=== PATIENT | male | born 2000 | race African-American/Black ===

== ENCOUNTER 2025-09-07 04:12 | Inpatient (IN) | payer MEDICAID, OTHER ==
[2025-09-07] VITALS (9 sets, daily range): BP systolic 103–119; BP diastolic 51–72; PULSE 53–96; RESP 15–20; TEMP 97.9–98.2; O2SAT 98–100
[~2025-09-07] VITALS: Ht 180.3 cm; Wt 67.8 kg
[2025-09-07] MEDS: SODIUM CHLORIDE 0.9% 1,000 ML IV ONE (05:15)
--- NOTE | 2025-09-07 05:23 | PRN ---
Misceleneous Note Note Note RAPID MEDICAL ASSESSMENT NOTE: 24-year-old male who presents with possible syncopal episode after smoking marijuana. Patient was heard falling down in the bathroom. He was noted to be confused for some time afterwards. Patient is not number what happened. He does have a headache, was feeling shaky and weak after the episode. He denies history of seizure but has had episodes of passing out in the past. Physical exam: General: Awake, alert and oriented. No acute distress. Skin: Skin in warm, dry and intact without rashes or lesions. HEENT: The head is normocephalic and atraumatic. Conjunctivae are clear without exudates or hemorrhage. Sclera is non-icteric. Neck: Normal range of motion. No JVD. Cardiac: Regular rate Respiratory: No signs of respiratory distress. No Stridor. Neurological: The patient is awake, alert and oriented to person, place, and time with normal speech. Speech is clear. There is no facial asymmetry. Psychiatric: Appropriate mood and affect. Good judgement and insight. Plan: Labs, CT head, IV fluid bolus. Sign out to oncoming provider pending full evaluation and re-assessment. MICHELLE LUDWIG MD Sep 07, 2025 05:23
[2025-09-07] MEDS: ONDANSETRON HCL 4 MG/2 ML VIAL IV ONE (06:00)
[2025-09-07] MEDS: ACETAMINOPHEN 325 MG TAB PO ONE (06:00)
--- NOTE | 2025-09-07 06:12 | DVH ---
EXAM: CT HEAD WITHOUT CONTRAST INDICATION: Syncope vs Seizure, Head INjury, BENSON. TECHNIQUE: CT of the head without intravenous contrast. Coronal and sagittal reformatted images are s ubmitted. Radiation Dose : 1. Head: CT Dose: CTDI volume is 59.05 mGy. Dose-length product is 828.39 mGy*cm The dose indicators for CT are the volume Computed Tomography (CT) Dose Index (CTDIvol) and the Dose Length Product (DLP), and are measured in units of mGy and mGy-cm, respectively. These indicators are not patient dose, but values generated from the CT scanner acquisition factors. The report includes radiation exposure data for exposures received during this examination. All CT scans at this medical facility are performed using dose modulation techniques as appropriate to a performed exam including the following: Automated exposure control was utilized; adjustment of the MA and/or KV according to patient size; and use of iterative reconstruction technique. COMPARISON: None FINDINGS: There is no evidence of acute intracranial hemorrhage, extra-axial collection, mass effect, midline s hift, herniation or hydrocephalus. The ventricles, sulci and cisterns are age appropriate. The granger-white differentiation is intact. The visualized paranasal sinuses and mastoid air cells are clear. No depressed calvarial fracture. The surrounding soft tissues are unremarkable. IMPRESSION: 1. No acute intracranial abnormality.
[2025-09-07 06:15] LABS: Hemoglobin 13.7 g/dL (13.5-17.5)
[2025-09-07 06:19] LABS: Hematocrit 42.2 % (41.0-53.0); Mean Corpuscular Hemoglobin 23.0 pg (28.0-32.0); Mean Corpuscular Volume 71.1 fL (80.0-100.0); Nucleated Red Blood Cells % 0.1 %
[2025-09-07 06:20] LABS: Anion Gap 7 (5-15); Carbon Dioxide 29 mmol/L (20-31); Chloride 102 mmol/L (98-107); Potassium 3.9 mmol/L (3.5-5.1); Sodium 138 mmol/L (136-145)
[2025-09-07 06:21] LABS: Calcium 9.6 mg/dL (8.7-10.4)
[2025-09-07 06:26] LABS: BUN/Creatinine Ratio 14.1 (10.0-20.0); Blood Urea Nitrogen 14 mg/dL (9-23); Glucose 101 mg/dL (74-106)
--- NOTE | 2025-09-07 07:07 | ED.PDOC ---
HPI (NEURO) HPI Comments This is a 24 year old male presenting to the ED with chief complaint of syncope. Patient reports that he had went to the bathroom around 3am this morning before he had suffered a syncopal episode, finding him on the ground. Patient relays that when he woke up soon after, he had felt associated dizziness and weakness, being unable to get up on his own. Patient states this has happened multiple times in the past, but for unknown reasons. Patient notes he smoked marijuana prior to symptom onset. Patient denies any chest pain, SOB, N/V/D, abdominal pain, headache, or vision loss. Chief Complaint: Fall Injury Time Seen by MD: 07:03 Reviewed Notes: Nurses Notes, Medications, Allergies Information Source: Patient Mode of Arrival: Ambulatory Severity: Moderate Dizziness/Weakness Severity: Unable to do activities Timing: Hours Duration: Since onset Prehospital treatment: None Weakness Location: Generalized Onset: At rest Circumstances: Spontaneous Symptoms: Syncope, Weakness Past Medical History PAST MEDICAL HISTORY: Denies Surgical History: Denies all surgeries Family History Family History: Reviewed,noncontributory to illness Social History Smoker: Non-Smoker Alcohol: Denies ETOH Use Drugs: Marijuana Lives In: Home Constitutional: reports: weakness; denies: chills, diaphoresis, fatigue, fever, malaise, sweats, others EENTM: denies: blurred vision, double vision, ear bleeding, ear discharge, ear drainage, ear pain, ear ringing, eye pain, eye redness, hearing loss, mouth pain, mouth swelling, nasal discharge, nose bleeding, nose congestion, nose pain, photophobia, tearing, throat pain, throat swelling, voice changes, others Respiratory: denies: cough, hemoptysis, orthopnea, SOB at rest, shortness of breath, SOB with excertion, stridor, wheezing, others Cardiovascular: reports: syncope; denies: chest pain, dizzy spells, diaphoresis, Dyspnea on exertion, edema, irregular heart beat, left arm pain, lightheadedness, palpitations, PND, others Gastrointestinal: denies: abdomen distended, abdominal pain, blood streaked bowels, constipated, diarrhea, dysphagia, difficulty swallowing, hematemesis, melena, nausea, poor appetite, poor fluid intake, rectal bleeding, rectal pain, vomiting, others Genitourinary: denies: burning, dysuria, flank pain, frequency, hematuria, incontinence, penile discharge, penile sore, pain, testicle pain, testicle swelling, urgency, others Neurological: reports: dizziness; denies: fainting, headache, left sided numbness, left sided weakness, numbness, paresthesia, pre-existing deficit, right sided numbness, right sided weakness, seizure, speech problems, tingling, tremors, weakness, others Musculoskeletal: denies: back pain, gout, joint pain, joint swelling, muscle pain, muscle stiffness, neck pain, others Integumetry: denies: bruises, change in color, change in hair/nails, dryness, laceration, lesions, lumps, rash, wounds, others Allergic/Immunocompromised: denies: Difficulty Healing, Frequent Infections, Hives, Itching, others Hematologic/Lymphatic: denies: anemia, blood clots, easy bleeding, easy bruising, swollen glands, others Endocrine: denies: excessive hunger, excessive sweating, excessive thirst, excessive urination, flushing, intolerance to cold, intolerance to heat, unexplained weight gain, unexplained weight loss, others Psychiatric: denies: anxiety, bipolar disorder, depression, hopeless, panic disorder, schizophrenia, sleepless, suicidal, others All Other Systems: Reviewed and Negative Physical Exam General Appearance: No Apparent Distress, Normal HEENT: Normal ENT Inspection, Pharynx Normal, TMs Normal Neck: Full Range of Motion, Non-Tender, Normal, Normal Inspection Respiratory: Chest Non-Tender, Lungs Clear, No Accessory Muscle Use, No Respiratory Distress, Normal Breath Sounds Cardiovascular: No Edema, No JVD, No Murmur, No Gallop, Normal Peripheral Pulses, Regular Rate/Rhythm Breast Exam: Deferred Gastrointestinal: No Organomegaly, Non Tender, No Pulsatile Mass, Normal Bowel Sounds, Soft Genitalia: Deferred Pelvic: Deferred Rectal: Deferred Extremities: No calf tenderness, Normal capillary refill, Normal inspection, Normal range of motion, Non-tender, No pedal edema Musculoskeletal : Apperance: Normal Neurologic: Alert, physical therapy coordinator II-XII nml as Tested, No Motor Deficits, Normal Affect, Normal Mood, No Sensory Deficits Cerebellar Function: Normal Reflexes: Normal Skin: Dry, Normal Color, Warm Lymphatic: No Adenopathy Was a procedure done? Was a procedure done?: No X-Ray, Labs, Meds, VS Vital Signs Date Time Temp Pulse Resp B/P (MAP) Pulse Ox O2 Delivery O2 Flow Rate FiO2 09/07/25 04:15 97.8 84 18 124/88 97 97.8 Lab Test 09/07/25 05:22 Range/Units White Blood Count 7.8 4.4-10.8 10^3/uL Red Blood Count 5.94 H 4.5-5.90 10^6/uL Hemoglobin 13.7 13.5-17.5 g/dL Hematocrit 42.2 41.0-53.0 % Mean Corpuscular Volume 71.1 L 80.0-100.0 fL Mean Corpuscular Hemoglobin 23.0 L 28.0-32.0 pg Mean Corpuscular Hemoglobin Concent 32.4 32.0-36.0 g/dL Red Cell Distribution Width 14.1 11.8-14.3 % Platelet Count 211 140-450 10^3/uL Mean Platelet Volume 7.8 6.9-10.8 fL Neutrophils (%) (Auto) 64.3 37.0-80.0 % Lymphocytes (%) (Auto) 23.5 10.0-50.0 % Monocytes (%) (Auto) 11.4 0.0-12.0 % Eosinophils (%) (Auto) 0.5 0.0-7.0 % Basophils (%) (Auto) 0.3 0.0-2.0 % Neutrophils # (Auto) 5.0 1.6-8.6 10 ^3/uL Lymphocytes # (Auto) 1.8 0.4-5.4 10 ^3/uL Monocytes # (Auto) 0.9 0-1.3 10 ^3/uL Eosinophils # (Auto) 0 0-0.8 10 ^3/uL Basophils # (Auto) 0 0-0.2 10 ^3/uL Nucleated Red Blood Cells 0.1 % Sodium Level 138 136-145 mmol/L Potassium Level 3.9 3.5-5.1 mmol/L Chloride Level 102 98-107 mmol/L Carbon Dioxide Level 29 20-31 mmol/L Anion Gap 7 5-15 Blood Urea Nitrogen 14 9-23 mg/dL Creatinine 0.99 0.700-1.30 mg/dL Glomerular Filtration Rate Calc 108 >90 mL/min BUN/Creatinine Ratio 14.1 10.0-20.0 Serum Glucose 101 74-106 mg/dL Calcium Level 9.6 8.7-10.4 mg/dL Current Medications Medications (Trade) Dose Ordered Sig/Krystina Route Start Time Stop Time Status Last Admin Sodium Chloride 1,000 ml @ 1,000 mls/hr Q1H ONCE IV 09/07/25 05:15 09/07/25 06:14 DC 09/07/25 05:15 Ondansetron HCl (Zofran) 4 mg ONCE ONCE IV 09/07/25 05:15 09/07/25 05:16 DC 09/07/25 06:00 Acetaminophen (Tylenol Tablet) 650 mg ONCE ONCE PO 09/07/25 05:15 09/07/25 05:16 DC 09/07/25 06:00 [place] [id number] Ph: [phone] DIAGNOSTIC IMAGING Diagnostic Imaging Report : [id number] Signed PATIENT: RUDI NEVES ACCT: [id number] UNIT: [id number] : 2000 LOC: ER ROOM / BED: / AGE / SEX: 24 / M ADM STATUS: REG ER SERVICE 4 ORDERING PHYSICIAN: MICHELLE LUDWIG MD PROCEDURE(s): HWOCT - HEAD WITHOUT CONTRAST REASON: Syncope vs Seizure, Head INjury, BENSON ORDER NUMBER(s): [id number], ACCESSION NUMBER(s): [id number] EXAM: CT HEAD WITHOUT CONTRAST INDICATION: Syncope vs Seizure, Head INjury, BENSON. TECHNIQUE: CT of the head without intravenous contrast. Coronal and sagittal reformatted images are submitted. Radiation Dose : 1. Head: CT Dose: CTDI volume is 59.05 mGy. Dose-length product is 828.39 mGy*cm The dose indicators for CT are the volume Computed Tomography (CT) Dose Index (CTDIvol) and the Dose Length Product (DLP), and are measured in units of mGy and mGy-cm, respectively. These indicators are not patient dose, but values generated from the CT scanner acquisition factors. The report includes radiation exposure data for exposures received during this examination. All CT scans at this medical facility are performed using dose modulation techniques as appropriate to a performed exam including the following: Automated exposure control was utilized; adjustment of the MA and/or KV according to patient size; and use of iterative reconstruction technique. COMPARISON: None FINDINGS: There is no evidence of acute intracranial hemorrhage, extra-axial collection, mass effect, midline shift, herniation or hydrocephalus. The ventricles, sulci and cisterns are age appropriate. The granger-white differentiation is intact. The visualized paranasal sinuses and mastoid air cells are clear. No depressed calvarial fracture. The surrounding soft tissues are unremarkable. IMPRESSION: 1. No acute intracranial abnormality. ATED BY: MICHAELA ORDONEZ MD DICTATED DATE/TIME: 09/07/25608 SIGNED BY: MICHAELA ORDONEZ MD SIGNED DATE/TIME: 09/07/25608 CC: [place] [address] Ph: [phone] DIAGNOSTIC IMAGING Diagnostic Imaging Report : [id number] Signed PATIENT: URDI NEVES ACCT: [id number] UNIT: [id number] : 2000 LOC: ER ROOM / BED: / AGE / SEX: 24 / M ADM STATUS: REG ER SERVICE 7 ORDERING PHYSICIAN: NICOLE MCWILLIAMS MD PROCEDURE(s): CXRP - CHEST PORTABLE REASON: syncope ORDER NUMBER(s): [id number], ACCESSION NUMBER(s): [id number] INDICATION: syncope TECHNIQUE: Frontal view of the chest. COMPARISON: None FINDINGS: . The heart and mediastinal contours are grossly unremarkable. There is no evidence of pleural disease. The lungs are clear. The bony structures of the chest are intact without fracture. IMPRESSION: 1. No evidence of acute disease. ATED BY: RAAD EPPS MD DICTATED DATE/TIME: 09/07/25739 SIGNED BY: RAAD EPPS MD SIGNED DATE/TIME: 09/07/25739 CC: Images Reviewed?: Images reviewed and evaluated by me Time of 1ST Reevaluation: 08:00 Reevaluation 1ST: Unchanged Patient Education/Counseling: Diagnosis, Treatment Family Education/Counseling: Diagnosis, Treatment Departure 1 Departure Time of Disposition: 08:19 (Patient presented with syncope today and should be admitted. Data: 1. I ordered and reviewed the result of at least 3 labs including a CBC, BMP, and troponin. 2. I independently interpreted the following tests: EKG which shows a sinus arrhythmia and a chest x-ray which shows _ benign chest and a CT head which shows benign brain.Risk:This patient has a high risk of morbidity due to further diagnostic testing or treatment and may suffer from an acute cardiac, neurologic, or infectious disorder. Rationale: Patient should be admitted to the hospital for further management.) Impression: Primary Impression: Syncope and collapse Disposition: ADMITTED INPATIENT Admit to: Tele Condition: Guarded Critical Care Note Critical Care Time?: No Stability Stability form required: No Heart Score Heart Score: Heart Score Response (Comments) Value History Moderate Suspicious 1 EKG Normal 0 Age <45 0 Risk Factors 1 or 2 risk factors 1 Troponin Normal limit 0 Total 2 I personally scribed for NICOLE MCWILLIAMS MD ([email or web address]) on 09/07/25 at 07:07. Electronically submitted by Dave Haywood ([email or web address]). I personally scribed for NICOLE MCWILLIAMS MD ([email or web address]) on 09/07/25 at 07:34. Electronically submitted by Dave Haywood ([email or web address]). I personally scribed for NICOLE MCWILLIAMS MD ([email or web address]) on 09/07/25 at 07:45. Electronically submitted by Dave Haywood ([email or web address]). NICOLE MCWILLIAMS MD Sep 07, 2025 07:07
--- NOTE | 2025-09-07 07:43 | DVH ---
INDICATION: syncope TECHNIQUE: Frontal view of the chest. COMPARISON: None FINDINGS: . The heart and mediastinal contours are grossly unremarkable. There is no evidence of pleural disea se. The lungs are clear. The bony structures of the chest are intact without fracture. IMPRESSION: 1. No evidence of acute disease.
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
[2025-09-07] MEDS ORDERED: ALBUTEROL SULF 2.5 MG/0.5ML(0.5%) NEB SOLN NEB PRN (09:30)
[2025-09-07] MEDS ORDERED: IPRATROPIUM BROM 0.5 MG/2.5ML INH SOL NEB PRN (09:30)
--- NOTE | 2025-09-07 09:47 | DVH ---
Carotid Duplex Date: 09/07/2025 09:17 AM Clinical History: dizziness Comparison: None Technique: Duplex Doppler evaluation of the extracranial carotid and vertebral arteries including col or Doppler and spectral/pulsed waveform analysis was performed. Findings: Velocities and ratios within normal limits. Antegrade bilateral vertebral artery flow IMPRESSION: No hemodynamically significant stenosis noted in the right carotid system. No hemodynamically significant stenosis noted in the left carotid system. Reference: Radiology 2003; 229:340-346
[2025-09-07 10:17] LABS: Amphetamine Screen, Urine Neg (NEGATIVE); Barbiturate Scree,Urine Neg (NEGATIVE); Benzodiazephine Screen, Urine Neg (NEGATIVE); Cocaine Screen, Urine Neg (NEGATIVE); Opiate Scree,Urine Neg (NEGATIVE)
[2025-09-07 10:18] LABS: Cannabinoid Screen, Urine Pos (NEGATIVE); Phencyclidine Screen, Urine Neg (NEGATIVE)
[2025-09-07 10:26] LABS: Urine Protein, UAD Negative (Negative)
--- NOTE | 2025-09-07 10:39 | DVH ---
Procedure: CT CHEST WITHOUT CONTRAST Reason for study/Clinical History: hemoptysis Comparison Study: None TECHNIQUE: Multidetector CT of the chest was performed from the lung apices to the upper abdomen with out the use of intravenous contract. Axial, coronal and sagittal multiplanar reformats were performed . Radiation Dose Information: CT Dose: CTDI volume is 5.28 mGy. Dose-length product is 229.16 mGy*cm The dose indicators for CT are the volume Computed Tomography (CT) Dose Index (CTDIvol) and the Dose Length Product (DLP), and are measured in units of mGy and mGy-cm, respectively. These indicators are not patient dose, but values generated from the CT scanner acquisition factors. The report includes radiation exposure data for exposures received during this examination. FINDINGS: Lower neck: Unremarkable. Lungs: No focal consolidation. 0.5 cm ground-glass opacity in the left upper lobe, image 33. Heart/Vascular Structures: Normal heart size. No pericardial effusion. Lymph Nodes: No adenopathy Pleura: No pleural effusion or significant pneumothorax. Musculoskeletal: No acute osseous abnormality. Soft tissues: Normal. Upper abdomen: Limited portions of the upper abdomen are unremarkable. IMPRESSION: No acute intrathoracic abnormality. 0.5 cm ground-glass opacity in the left upper lobe. Follow-up CT chest in 6-12 months is recommended. Limited examination secondary to patient motion artifact. Radiation optimization: All CT scans at this facility use at least one of these dose optimization alessandra hniques: automated exposure control mA and/or kV adjustment per patient size (includes targeted exam s where dose is matched to clinical indication) or iterative reconstruction.
--- NOTE | 2025-09-07 12:45 | DVH ---
Bilateral Lower Extremity Arterial Duplex Clinical History: toes discoloration Comparison: US CAROTID DUPLX W COLOR DOP on DOS: 09/07/25 Technique: Duplex Doppler evaluation including color Doppler and spectral/pulsed waveform analysis of the lower extremity arteries was performed. Findings: RIGHT: Peak systolic velocities are as follows: [employer]LL[employer] OFFICER 111 cm/s Deep femoral 81 cm/s SFA proximal 100 cm/s SFA mid-portion 115 cm/s SFA distal 113 cm/s Popliteal 63 cm/s Posterior tibial 50 cm/s Anterior tibial 76 cm/s Peroneal nv cm/s Dorsalis pedis 86 cm/s The waveforms are triphasic with diastolic flow. LEFT: Peak systolic velocities are as follows: PH[employer]GR[employer] INTELL[employer] OFFICER 158 cm/s Deep femoral 82 cm/s SFA proximal 122 cm/s SFA mid-portion 133 cm/s SFA distal 80 cm/s Popliteal 72 cm/s Posterior tibial 63 cm/s Anterior tibial 68 cm/s Peroneal nv cm/s Dorsalis pedis 60 cm/s The waveforms are triphasic with diastolic flow. IMPRESSION: No hemodynamically significant stenosis in the right lower extremity based on peak systolic velocity criteria. 20 - 49% stenosis of the left common femoral artery secondary to peak systolic velocity criteria. REFERENCE VALUES, [facility] ([facility]) vascular Imaging Lab Criteria: Peak systolic velocity rang es (in cm/sec) are as follows: <150 cm/s - <20 % stenosis 150-200 cm/s - 20-49% stenosis 200-300 cm/s - 50-75% stenosis >300 cm/s -> 75% stenosis
[2025-09-07] MEDS: ONDANSETRON HCL 4 MG/2 ML VIAL IV PRN (17:48)
[2025-09-07] MEDS: ACETAMINOPHEN 325 MG TAB PO PRN (20:29)
--- NOTE | 2025-09-07 20:34 | DVHSR ---
APPROVED REPORT EXAM: Two-dimensional and M-mode echocardiogram with Doppler and color Doppler. Blood Pressure: 124/88 mmHg INDICATION Syncope RISK FACTORS Height: 70, Weight: 171 DIMENSIONS LVDd4.6 (3.8-5.7cm)LA (2D)3.4 (1.9-4.0cm)Aortic Root3.3 (2.0-3.7cm) LVDs2.9 (2.5-4.0cm)LA (MM) (1.9-4.0cm)Aortic Cusp Exc1.8 (1.5-2.0cm) EF (%) 68.0 (55-70%)Rt. Atrium3.1 (1.9-4.0cm)Asc. Aorta cm IVSd0.9 (0.7-1.1cm)RV (D) (1.8-2.4cm) PWd0.9 (0.7-1.1cm) Mitral Valve MitralMitral Stenosis E wave0.74m/sMV Mean GR.mmHg A wave0.37m/sMV Peak GR.mmHg E/A ratio2.02D MVAcm2 DECEL [id number] 1/2 Opdb47ys IVRTmsDop MVA3.35cm2 Aortic Valve Aortic ValveAortic Stenosis V10.97m/Yazmin Mean GR.4mmHg V21.37m/Yazmin Peak GR.8mmHg LVOT Diameter2.1 (1.8-2.4cm)Doppler AVA2.45cm2 Pulmonic Valve V21.24m/s Tricuspid Valve TR Velocity1.94m/s [id number] Conclusion Sinus rhythm. Normal chamber sizes. Valves are normal. EF of 60% with normal RV function. Dopplers unremarkable. No pericardial effusion masses or vegetations.
[2025-09-07] MEDS ORDERED: LORazepam 2MG/ML-1ML VIAL IV PRN (21:45)
[2025-09-08] VITALS (11 sets, daily range): BP systolic 101–108; BP diastolic 54–72; PULSE 53–75; RESP 15–18; TEMP 97.3–99; O2SAT 98–100
[2025-09-08] MEDS: KETOROLAC TROMETH 30 MG/ML 1ML VIAL IV ONE (05:32)
[2025-09-08 06:16] LABS: Hematocrit 40.1 % (41.0-53.0); Hemoglobin 12.8 g/dL (13.5-17.5); Mean Corpuscular Hemoglobin 22.9 pg (28.0-32.0); Mean Corpuscular Volume 71.7 fL (80.0-100.0); Nucleated Red Blood Cells % 0.2 %
[2025-09-08 06:39] LABS: Albumin 4.2 g/dL (3.2-4.8); Alkaline Phosphatase 63 U/L (46-116); Anion Gap 8 (5-15); BUN/Creatinine Ratio 8.1 (10.0-20.0); Blood Urea Nitrogen 9 mg/dL (9-23); Calcium 9.2 mg/dL (8.7-10.4); Carbon Dioxide 30 mmol/L (20-31); Chloride 105 mmol/L (98-107); Potassium 4.2 mmol/L (3.5-5.1); Sodium 143 mmol/L (136-145); Total Protein 6.6 g/dL (5.7-8.2)
[2025-09-08 06:40] LABS: Bilirubin, Total 0.5 mg/dL (0.2-1.0)
[2025-09-08 06:42] LABS: Alanine Aminotransferase < 9 U/L (7-40); Glucose 71 mg/dL (74-106)
--- NOTE | 2025-09-08 09:50 | DVH ---
CLINICAL INDICATION: MRI SAFETY R/O BULLET FRAGMENTS TECHNIQUE: 2 radiographic views of the right foot were obtained. Comparison: None FINDINGS/IMPRESSION: There is no evidence of acute fracture or dislocation. Radiopaque hyperdensities in the posterior right calcaneus which may represent radiopaque foreign bod ies.
[2025-09-08 10:54] LABS: Hepatitis B Surface Antigen Negative (Negative)
[2025-09-08 11:15] LABS: Hepatitis C Antibody Negative (Negative)
--- NOTE | 2025-09-08 11:15 | DVHPN2 ---
Reviewed: H&P Changes from previous H/P or p: No Changes General: Per HPI Respiratory: Hemoptysis Skin: Lesions Objective Vitals Vital Signs Date Time Temp Pulse Resp B/P (MAP) Pulse Ox O2 Delivery O2 Flow Rate FiO2 09/07/25 13:28 98.2 68 16 104/55 98 0.0 21 98.2 09/07/25 10:56 Room Air* Exam GEN: Healthy appearing, well-developed, NAD. HEENT: NC/AT; MMM. CV: RRR, no m/r/g. LUNGS: CTAB, no w/r/c. ABD: Soft, NT/ND, NBS, no masses or organomegaly. EXT: skin Warm, well perfused. no rashes. No clubbing, cyanosis, or edema. NEURO: Ambulating with no limitations. No focal deficits. Medications Current Medications Medications Dose Ordered Sig/Krystina Route Start Time Stop Time Status Last Admin Dose Admin Ondansetron HCl 4 mg Q4HP PRN IV 09/07/25 08:00 Acetaminophen 650 mg Q6HP PRN PO 09/07/25 08:00 Albuterol 2.5 mg Q4HPRN PRN NEB 09/07/25 09:30 Ipratropium [place] 0.5 mg Q4HPRN PRN NEB 09/07/25 09:30 Laboratory Results Laboratory Tests 09/07/25 05:22 Chemistry Test 09/07/25 05:22 Calcium Level 9.6 mg/dL (8.7-10.4) Urinalysis Test 09/07/25 08:00 Urine Color Light-yellow (Yellow) Urine Clarity Clear (Clear) Urine pH 6.0 (5.0-9.0) Urine Specific [place] 1.006 (1.001-1.035) Urine Protein Negative (Negative) Urine Ketones Negative (Negative) Urine Blood Negative /uL (Negative) Urine Nitrite Negative (Negative) Urine Bilirubin Negative (Negative) Urine Urobilinogen Normal mg/dL (Negative) Urine Leukocyte Esterase Negative /uL (Negative) Urine RBC <1 /hpf (0 - 3) Urine Microscopic WBC < 1 /HPF (0-3) Urine Squamous Epithelial Cells None seen /hpf (<5) Urine Bacteria None seen /hpf (None Seen) Urine Glucose Normal mg/dL (Normal) Labs and/or images reviewed: Labs reviewed by me, Image(s) reviewed by me Assessment/Plan Assessment/Plan 09/07: Patient endorses that he was normal this a.m., when out of no where he felt periphery blackened and then he lost consciousness. He says per his he had some shaking episodes after the syncope. There is no family history of cardiac nature. He has no nausea and vomiting or diarrhea had normal p.o. tolerance and was hydrating well since yesterday. UDS was only positive for marijuana. Patient is excessively sleepy during exam but otherwise normal exam healthy young male. Bleed soccer no history of sudden syncope or exercise- induced syncope. We will get echocardiogram, orthostatics, continuing tele, q.4 neuro checks. The seizure is less likely, possible syncope related shakes. UDS mostly negative but I am concern for drugs the perhaps were not picked up by UDS. However we should rule out any cardiac causes with echo. -apparently there was hematemesis? Overnight, hemoglobin drop 1 unit, we will repeat hemoglobin, no further episodes hematemesis this a.m.. Blood pressure stable. We will repeat hemoglobin and have nursing eval of mobility, if patient has good stable vitals hemoglobin stable and is ambulating well with RN, likely discharge this p.m.. Diagnosis Syncope Post syncopal induced pseudoseizures Polysubstance abuse, unable to rule out THC abuse Intravascular volume depletion possible Plan: IV fluids Q.4 neuro checks Telemetry Orthostatics Echocardiogram Continue regular diet, Encourage p.o. hydration Tele Full code Plan discussed with: Patient Date of Service: Sep 07, 2025 Billing Provider: SANTINO OSCAR MD Common Visit Codes: [id number] INP/OBS CARE(HIGH) SANTINO OSCAR MD Sep 07, 2025 14:37
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
--- NOTE | 2025-09-08 11:45 | DVHDS2 ---
Discharge Summary Date of Admission Sep 07, 2025 at 07:47 Labs/Diagnostic Data: Laboratory Results Test 09/08/25 04:42 09/07/25 08:00 09/07/25 05:22 White Blood Count 4.9 10^3/uL (4.4-10.8) Red Blood Count 5.59 10^6/uL (4.5-5.90) Hemoglobin 12.8 g/dL (13.5-17.5) Hematocrit 40.1 % (41.0-53.0) Mean Corpuscular Volume 71.7 fL (80.0-100.0) Mean Corpuscular Hemoglobin 22.9 pg (28.0-32.0) Mean Corpuscular Hemoglobin Concent 31.9 g/dL (32.0-36.0) Red Cell Distribution Width 14.0 % (11.8-14.3) Platelet Count 193 10^3/uL (140-450) Mean Platelet Volume 7.8 fL (6.9-10.8) Neutrophils (%) (Auto) 41.3 % (37.0-80.0) Lymphocytes (%) (Auto) 45.5 % (10.0-50.0) Monocytes (%) (Auto) 10.5 % (0.0-12.0) Eosinophils (%) (Auto) 2.2 % (0.0-7.0) Basophils (%) (Auto) 0.5 % (0.0-2.0) Neutrophils # (Auto) 2.0 10 ^3/uL (1.6-8.6) Lymphocytes # (Auto) 2.2 10 ^3/uL (0.4-5.4) Monocytes # (Auto) 0.5 10 ^3/uL (0-1.3) Eosinophils # (Auto) 0.1 10 ^3/uL (0-0.8) Basophils # (Auto) 0 10 ^3/uL (0-0.2) Nucleated Red Blood Cells 0.2 % Sodium Level 143 mmol/L (136-145) Potassium Level 4.2 mmol/L (3.5-5.1) Chloride Level 105 mmol/L (98-107) Carbon Dioxide Level 30 mmol/L (20-31) Anion Gap 8 (5-15) Blood Urea Nitrogen 9 mg/dL (9-23) Creatinine 1.11 mg/dL (0.700-1.30) Glomerular Filtration Rate Calc 95 mL/min (>90) BUN/Creatinine Ratio 8.1 (10.0-20.0) Serum Glucose 71 mg/dL (74-106) Calcium Level 9.2 mg/dL (8.7-10.4) Total Bilirubin 0.5 mg/dL (0.2-1.0) Aspartate Amino Transferase (AST) 16 U/L (13-40) Alanine Aminotransferase (ALT) < 9 U/L (7-40) Alkaline Phosphatase 63 U/L (46-116) Total Protein 6.6 g/dL (5.7-8.2) Albumin 4.2 g/dL (3.2-4.8) Urine Color Light-yellow (Yellow) Urine Clarity Clear (Clear) Urine pH 6.0 (5.0-9.0) Urine Specific [place] 1.006 (1.001-1.035) Urine Protein Negative (Negative) Urine Ketones Negative (Negative) Urine Blood Negative /uL (Negative) Urine Nitrite Negative (Negative) Urine Bilirubin Negative (Negative) Urine Urobilinogen Normal mg/dL (Negative) Urine Leukocyte Esterase Negative /uL (Negative) Urine RBC <1 /hpf (0 - 3) Urine Microscopic WBC < 1 /HPF (0-3) Urine Squamous Epithelial Cells None seen /hpf (<5) Urine Bacteria None seen /hpf (None Seen) Urine Glucose Normal mg/dL (Normal) Urine Opiates Screen Neg (NEGATIVE) Urine Fentanyl Screen Neg (NEGATIVE) Urine Barbiturates Screen Neg (NEGATIVE) Urine Phencyclidine Screen Neg (NEGATIVE) Urine Amphetamines Screen Neg (NEGATIVE) Urine Benzodiazepines Screen Neg (NEGATIVE) Urine Cocaine Screen Neg (NEGATIVE) Urine Cannabinoids Screen Pos (NEGATIVE) C-Reactive Protein High Sensitivity 0.06 mg/dL (<1.0) Hepatitis B Surface Antigen Negative (Negative) Hepatitis C Antibody Negative (Negative) Other Laboratory Tests 09/08/25 04:42 Brief Hx & Hospital Course: 09/08: Echocardiogram was done with no concerning findings, no concern for aortic stenosis or HOCM, no wall motion abnormalities,. Tele without any concerns for arrhythmias/ arrhythmias. Patient is in at lead his heart rate is in the low 50s high 40s, asymptomatic.. Eyes still think inciting factors likely drugs which have not been picked up by our drug screen. Patient otherwise stable for discharge vital signs stable. Neurologically intact, patient can get MRI outpatient. Currently getting EEG., neuro cause less likely/. With acute causes ruled out, patient ambulating vital signs stable tolerating p.o., patient is stable for discharge to follow up with PCP for further workup. Discharge Instruct/Medications No Active Prescriptions or Reported Meds Discharge Statement: "Patient was advised to return to the ER or call 911 if any headaches, dizziness, shortness of breath, chest pain, abdominal pain, bleeding, fevers, or worsening of medical condition. Patient was counseled about treatment plan, medications, possible side effects, patientverbalized understanding. All questions were answered to the best of my ability. This discharge took greater then 30 minutes in planning, reviewing documentation, counseling the patient, and discussing with other team members." ASSESSMENT ASSESSMENT Assessment Date of Service: Sep 08, 2025 Billing Provider: SANTINO OSCAR MD Common Visit Codes: NOT BILLABLE SANTINO OSCAR MD Sep 08, 2025 11:43
[2025-09-08 13:40] LABS: Hematocrit 38.2 % (41.0-53.0); Hemoglobin 11.9 g/dL (13.5-17.5)
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
[2025-09-08] MEDS: PANTOPRAZOLE 40 MG/10 ML VIAL INJ IV SCH (14:44)
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
[2025-09-08] MEDS: HYDROcodone-ACET 5/325MG TAB PO PRN (22:41)
[2025-09-09] VITALS (8 sets, daily range): BP systolic 100–127; BP diastolic 55–91; PULSE 55–67; RESP 15–18; TEMP 36.6; O2SAT 95–100
[2025-09-09 05:34] LABS: Hemoglobin 12.7 g/dL (13.5-17.5); Nucleated Red Blood Cells % 0.1 %
[2025-09-09 05:37] LABS: Hematocrit 39.9 % (41.0-53.0); Mean Corpuscular Hemoglobin 22.7 pg (28.0-32.0); Mean Corpuscular Volume 71.4 fL (80.0-100.0)
--- NOTE | 2025-09-09 12:52 | DVHPN2 ---
Progress Note - Dictate Date Seen: Sep 09, 2025 Medical Necessity Reason Pt with a Central, PICC or Fol: No Subjective No GIB today. Tolerated diet well. Hb stable vital signs Vital Sign Date Time Temp Pulse Resp B/P (MAP) Pulse Ox O2 Delivery O2 Flow Rate FiO2 09/09/25 09:45 100 Room Air* 0 21 09/09/25 09:00 98.3 60 15 127/57 (80) 98.3 Total Intake and Output 09/08/25 09/08/25 09/09/25 15:00 23:00 07:00 Intake Total 750 ml 845 ml Output Total 300 ml 1450 ml Balance 450 ml -605 ml medications Current Medications Medications Dose Ordered Sig/Krystina Route Start Time Stop Time Status Last Admin Dose Admin Ondansetron HCl 4 mg Q4HP PRN IV 09/07/25 08:00 09/07/25 17:48 4 MG Acetaminophen 650 mg Q6HP PRN PO 09/07/25 08:00 09/08/25 21:26 650 MG Albuterol 2.5 mg Q4HPRN PRN NEB 09/07/25 09:30 Ipratropium [place] 0.5 mg Q4HPRN PRN NEB 09/07/25 09:30 Lorazepam 1 mg ONCE PRN IV 09/07/25 21:45 Pantoprazole Sodium 40 mg BID IV 09/08/25 14:15 09/09/25 10:54 40 MG Acetaminophen/ Hydrocodone Bitart 1 tab Q6HPRN PRN PO 09/08/25 22:30 09/09/25 05:39 1 TAB objective Ge: in no distress CVS: S1S2+ Lungs: clear Abdomen: soft, nondistended, nontender, BS+ laboratory and microbiology Laboratory Tests 09/09/25 04:40 09/08/25 04:42 Test 09/08/25 04:42 Range/Units Serum Glucose 71 L 74-106 mg/dL Assessment/Plan #Hematemesis, single episode #Microcytosis #Anemia, likely dilutional (normal on admission, gradual decrease in Hb, even prior to hematemesis) Monitor Hb, keep >7 On PPI IV BID and oral on dc Hb stable and no GIB recurrence. No GI intervention rec. GI clinic f/u out pt Care plan discussed with pt in detail Thank you for allowing me to participate in the care of this patient Plan discussed with: Patient, Other PROSPER HORN MD Sep 09, 2025 12:52
--- NOTE | 2025-09-09 15:07 | DVHPN2 ---
Progress Note Date Seen: Sep 09, 2025 Medical Necessity Reason Pt with a Central, PICC or Fol: No Subjective Patient reports: Feels better (Patient states the hematemesis was small amount from a thorough not from esophagogastrostomy. No hematemesis. Repeat CBC trended out bacterial baseline around 8.7. Patient did not receive hemoglobin and transfusion. Leaning PPI and monitor. If patient remains stable posterior patient can be discharged and follow up with outpatient for GI evaluation) Changes from previous H/P or p: No Changes Objective vital signs Vital Sign Date Time Temp Pulse Resp B/P (MAP) Pulse Ox O2 Delivery O2 Flow Rate FiO2 09/09/25 13:00 98.1 67 17 123/91 (102) 97 98.1 09/09/25 09:45 Room Air* 0 21 Total Intake and Output 09/08/25 09/08/25 09/09/25 15:00 23:00 07:00 Intake Total 750 ml 845 ml Output Total 300 ml 1450 ml Balance 450 ml -605 ml medications Current Medications Medications Dose Ordered Sig/Krystina Route Start Time Stop Time Status Last Admin Dose Admin Ondansetron HCl 4 mg Q4HP PRN IV 09/07/25 08:00 09/07/25 17:48 4 MG Acetaminophen 650 mg Q6HP PRN PO 09/07/25 08:00 09/08/25 21:26 650 MG Albuterol 2.5 mg Q4HPRN PRN NEB 09/07/25 09:30 Ipratropium [place] 0.5 mg Q4HPRN PRN NEB 09/07/25 09:30 Lorazepam 1 mg ONCE PRN IV 09/07/25 21:45 Pantoprazole Sodium 40 mg BID IV 09/08/25 14:15 09/09/25 10:54 40 MG Acetaminophen/ Hydrocodone Bitart 1 tab Q6HPRN PRN PO 09/08/25 22:30 09/09/25 05:39 1 TAB Examination: GENERAL:Normal, HEENT:Normal, NECK:Normal, LUNGS:Normal, CVS:Normal, ABDOMEN:Normal, MSK:Normal, SKIN:Normal, NEURO:Normal laboratory and microbiology Laboratory Tests 09/09/25 04:40 09/08/25 04:42 Test 09/08/25 04:42 Range/Units Serum Glucose 71 L 74-106 mg/dL Problem List/Assessment/Plan Problem List/Assessment/Plan Syncope Hematemesis Upper GI bleed Anemia, acute blood loss anemia Post syncopal induced pseudoseizures Polysubstance abuse, unable to rule out THC abuse Intravascular volume depletion possible Plan: IV fluids Regular diet Telemetry Orthostatics Echocardiogram normal Continue regular diet, Continue PPI GI req appreciated Encourage p.o. hydration Possible discharge today or tomorrow pending patient status Plan discussed with: Patient Date of Service: Sep 09, 2025 Billing Provider: FARHAD ORTIZ MD Common Visit Codes: [id number] SAME DATE (MOD) FARHAD ORTIZ MD Sep 09, 2025 15:07
[2025-09-09] MEDS ORDERED: PANT40TA2 PO (15:09)
--- NOTE | 2025-09-10 17:40 | DVHEEG2 ---
Neurology EEG Procedural Note Procedural Note EXAM DATE: 09/08/2025 REFERRING DOCTOR: Dr. Quiñones TECHNIQUE: Eighteen channels of EEG, 2 channels of EOG, and 1 channel of EKG were recorded using the International 10/20 system. CLINICAL DATA: The patient was referred for an EEG evaluation for the evidence of seizure disorder. MEDICATIONS: Seizure chart BACKGROUND ACTIVITY: While the patient was awake, the background activity consisted of poorly regulated 8 Hz rhythmic waveforms, symmetrically distributed over both posterior quadrants and was reactive to eye opening. ACTIVATION: Hyperventilation: Not done Photic Stimulation: No photic convulsive response Sleep: Not seen IMPRESSION: This is a normal EEG. No focal, lateralized, or epileptiform features are noted. If clinically indicated to rule out a seizure disorder, recommend repeat EEG with sleep deprivation. The EKG channel showed a regular heart rate of 48/minute. [place] [address] RAAD QUIÑONES MD Sep 10, 2025 17:40
== END 2025-09-09 19:00 | disposition home or self-care (01) | DRG 48 ==
LOC: ER 04:12 → EDBD 04:12 → OVERFLOW 07:47 → WEST WING 08:46 → TELE-WESTW 16:27
PROVIDERS: ADMIT Internal Medicine; ATTEND Internal Medicine
DX: G90.89 Other disorders of autonomic nervous system (principal); R56.9 Unspecified convulsions; E86.9 Volume depletion, unspecified; J45.909 Unspecified asthma, uncomplicated; F12.10 Cannabis abuse, uncomplicated; M54.18 Radiculopathy, sacral and sacrococcygeal region; M54.50 Low back pain, unspecified; G89.29 Other chronic pain; K21.9 Gastro-esophageal reflux disease without esophagitis; Z90.49 Acquired absence of other specified parts of digestive tract; Z80.0 Family history of malignant neoplasm of digestive organs; Z80.3 Family history of malignant neoplasm of breast; Z82.49 Family history of ischemic heart disease and other diseases of the circulatory system; F19.10 Other psychoactive substance abuse, uncomplicated
CPT/HCPCS: 36415; 70450; 71045; 71250; 73620; 80048; 80053; 80307; 81001; 82270; 85014; 85018; 85025; 86141; 86803; 86850; 86900; 86901; 87340; 93306; 93886; 93925; 95819; G0378; J1885; J2405; J2470